=== PATIENT | female | born 1985 | race Caucasian/White ===

== ENCOUNTER → 2017-10-10 | Outpatient (CLI) | payer OTHER ==
--- NOTE | 2017-10-10 15:34 | US ---
EXAMINATION TYPE: US abdomen limited DATE OF EXAM: 10/10/2017 COMPARISON: NONE CLINICAL HISTORY: 32-year-old female R74.8 Elevated Liver Enzymes. Technique: Multiple sonographic images of the right upper quadrant are obtained. FINDINGS: Liver Length: 13.9 cm Gallbladder Wall: 0.2 cm CBD: 0.4 cm Right Kidney: 12.5 x 4.3 x 7.8 cm BUSINESS OFFICE REPRESENTATIVE NOTES: Exam somewhat limited by body habitus and bowel gas. Pancreas: Suboptimal visualization of the pancreatic tail secondary to shadowing from bowel gas. Liver: Echogenic in appearance. No focal lesion seen. Gallbladder: No abnormal gallbladder distention, wall thickening, pericholecystic fluid, or shadowin g calculi. Evidence for sonographic Weir's sign: No CBD: wnl Right Kidney: No hydronephrosis. IMPRESSION: 1. Some technical limitations due to bowel gas and large body habitus. 2. Findings suggest fatty infiltration of the liver. Correlate with LFTs, lipid profile, and patient risk factors.
== END | disposition home or self-care (01) ==
LOC: RADUSWWP 12:25
PROVIDERS: ATTEND Internal Medicine
DX: R74.8 Abnormal levels of other serum enzymes (principal)
CPT/HCPCS: 76705

== ENCOUNTER → 2019-08-09 | Outpatient (CLI) | payer OTHER ==
[2019-08-09 14:54] LABS: Basophils % (A) 1 %; Eosinophils # (A) 0.1 k/uL (0-0.7); Eosinophils % (A) 2 %; HCT 46.8 % (34.0-46.0); HGB 15.4 gm/dL (11.4-16.0); Lymphocytes % (A) 25 %; MCH 29.2 pg (25.0-35.0); MCV 88.6 fL (80.0-100.0); Monocytes # (A) 0.5 k/uL (0-1.0); Monocytes % (A) 6 %; Neutrophils # (A) 5.3 k/uL (1.3-7.7); Neutrophils % (A) 65 %; Platelet Count 275 k/uL (150-450); RBC 5.28 m/uL (3.80-5.40); RDW 12.8 % (11.5-15.5); WBC 8.1 k/uL (3.8-10.6)
== END | disposition home or self-care (01) ==
LOC: LABPAT 14:24
PROVIDERS: ATTEND Obstetrics & Gynecology
DX: Z01.812 Encounter for preprocedural laboratory examination (principal)
CPT/HCPCS: 36415; 85025

== ENCOUNTER 2019-08-12 08:24 | Day surgery (SDC) | payer OTHER ==
[2019-08-09 14:27] VITALS: BMI 43.9
[~2019-08-12 08:24] MED LIST: DEXAMETHASONE SOD PHOSPHATE 10 MG/ML 1 ML VIAL IV ONE; HYDROmorphone 0.5 MG/0.5 ML SYRINGE IVP PRN; LACTATED RINGERS 1,000 ML IV SCH; LIDOCAINE 1% 20 ML VIAL (10MG/ML) FOR IV START INTRADERMA PRN; MIDAZOLAM 2 MG/2 ML VIAL IV PRN; ONDANSETRON 4 MG/2 ML VIAL IVP ONE; Pre Op ABX Message 1 EACH MISC MISCELLANE ONE; SCOPOLAMINE 1.5MG/72HR PATCH TRANSDERM ONE
[2019-08-12 09:13] LABS: Glucose,Whole Blood 274 mg/dL (75-99)
--- NOTE | 2019-08-12 09:13 | P.HPOB ---
History of Present Illness H&P Date: 08/12/19 Chief Complaint: skin tag 34 year old G0 presents for skin tag removal on vulva. Review of Systems All systems: negative Constitutional: Denies chills, Denies fever Eyes: denies blurred vision, denies pain Ears, nose, mouth and throat: Denies headache, Denies sore throat Cardiovascular: Denies chest pain, Denies shortness of breath Respiratory: Denies cough Gastrointestinal: Denies abdominal pain, Denies diarrhea, Denies nausea, Denies vomiting Genitourinary: Denies dysuria, Denies hematuria Musculoskeletal: Denies myalgias Integumentary: Denies pruritus, Denies rash Neurological: Denies numbness, Denies weakness Psychiatric: Denies anxiety, Denies depression Endocrine: Denies fatigue, Denies weight change Past Medical History Past Medical History: Diabetes Mellitus, GERD/Reflux, Hypertension, Thyroid Disorder History of Any Multi-Drug Resistant Organisms: None Reported Additional Past Surgical History / Comment(s): wisdom teeth Past Anesthesia/Blood Transfusion Reactions: No Reported Reaction Smoking Status: Never smoker Medications and Allergies Home Medications Medication Instructions Recorded Confirmed Type Cider Vinegar [Apple Cider Vinegar] 300 mg PO 08/09/19 History Dapagliflozin Propanediol [Farxiga] 10 mg PO DAILY 08/09/19 08/09/19 History Glimepiride [Amaryl] 4 mg PO AC-BRKFST 08/09/19 08/09/19 History Levothyroxine Sodium [Synthroid] 150 mcg PO DAILY 08/09/19 08/09/19 History Lisinopril [Zestril] 10 mg PO DAILY 08/09/19 08/09/19 History Omeprazole 20 mg PO DAILY 08/09/19 08/09/19 History metFORMIN HCL 1,000 mg PO BID 08/09/19 08/09/19 History Allergies Allergy/AdvReac Type Severity Reaction Status Date / Time Penicillins Allergy Unknown Verified 08/09/19 14:19 Childhood Exam Osteopathic Statement: *. No significant issues noted on an osteopathic structural exam other than those noted in the History and Physical/Consult. Vital Signs Temp Pulse Resp BP Pulse Ox 08/12/19 08:47 98.2 F 97 16 148/87 97 Intake and Output 08/11/19 08/12/19 08/12/19 22:59 06:59 14:59 Other: Weight 142.88 kg Heart: Regular rate and rhythm Lungs: Clear to auscultation bilaterally Abdomen: Soft, nontender Extremities: Negative Homans sign Assessment and Plan (1) Skin tag of vulva Current Visit: Yes Status: Acute Code(s): N90.89 - OTH NONINFLAMMATORY DISORDERS OF VULVA AND PERINEUM SNOMED Code(s): 226067346 Plan: 1. Exam under anesthesia with removal of skin tags
[2019-08-12] MEDS ORDERED: INSULIN ASPART (NovoLOG) 100 UNIT/ML VIAL SQ ONE (09:18)
[2019-08-12] MEDS ORDERED: PROPOFOL 10 MG/ML 20 ML VIAL IV ONE (09:35)
[2019-08-12] MEDS ORDERED: diphenhydrAMINE 50 MG/ML 1 ML VIAL ONE (09:35)
[2019-08-12] MEDS ORDERED: KETAMINE 10 MG/ML 20 ML VIAL ONE (09:35)
[2019-08-12] MEDS ORDERED: fentaNYL (PF) 50 MCG/ML 2 ML AMP ONE (09:35)
[2019-08-12] MEDS ORDERED: MIDAZOLAM 2 MG/2 ML VIAL ONE (09:35)
[2019-08-12] MEDS ORDERED: LIDOCAINE 1%-EPI 1:100,000 20 ML VIAL SQ ONE ×2 (09:54)
[2019-08-12 10:16] LABS: Glucose,Whole Blood 265 mg/dL (75-99)
--- NOTE | 2019-08-12 10:18 | P.OP ---
Date of Procedure: 08/12/19 Preoperative Diagnosis: 1. Vulvar skin tags Postoperative Diagnosis: 1. Vulvar skin tags Procedure(s) Performed: exam under anesthesia with removal of vulvar skin tags Anesthesia: MAC Surgeon: Darby Gunter Estimated Blood Loss (ml): 1 IV fluids (ml): 100 Urine output (ml): 100 Pathology: other (skin tags) Condition: stable Disposition: PACU Operative Findings: 2 areas that appeared to be either skin tags or condyloma. Description of Procedure: patient taken the operating room where IV sedation was obtained without difficulty. She is prepped and draped in normal sterile fashion dorsal lithoto my position, legs placed in the Alvaro stirrups. The bladder was drained of all urine. 1% lidocaine with epinephrine was injected just beneath the areas of the skin tags. A 15 blade was used to excise these lesions. The Bovie was used for hemostasis. A 3-0 Vicryl is used in a subcuticular fashion to close these incisions. Patient to our procedure well, sponge management counts correct 2. She is taken to recovery in stable condition.
[2019-08-12 10:20] VITALS: TEMP 97.6
[2019-08-12 10:25] VITALS: RESP 16
[2019-08-12 10:55] VITALS: BP 123/58; PULSE 89
--- NOTE | 2019-08-19 02:43 | CDI ---
Outpatient Documentation Clarification Form Date: 19/08/2019 CDS/Development Executive Name: Manny Schmidt Phone: If any questions, call Yanet Hay Developmental Writing Instructor at [phone] Patient Name: Elham Diaz Admit Date: 08/12/2019 Discharge Date: 08/12/2019 ATTENTION: The [facility] Coding Staff appreciate your assistance in clarifying documentation. Please respond to the clarification below the line at the bottom and electronically sign. The [facility] Coding staff will review the response and follow-up if needed. Please note: Queries are made part of the Legal Health Record. If you have any questions, please contact the Developmental Writing Instructor. Dear Jani Alvarez Kathleen As per your Operative note documentation Removal of vulvar skin tags was performed. It was proved to be condyloma in path report. Please clarify the size of 2 condyloma removed. 1. First condyloma 1.5cm 2. Second condyloma____2.5cm Thank you for your kind consideration. MABLE
== END 2019-08-12 11:17 | disposition home or self-care (01) ==
LOC: OR 08:24
PROVIDERS: ATTEND Obstetrics & Gynecology
DX: A63.0 Anogenital (venereal) warts (principal); I10 Essential (primary) hypertension; E11.9 Type 2 diabetes mellitus without complications; K21.9 Gastro-esophageal reflux disease without esophagitis; Z79.84 Long term (current) use of oral hypoglycemic drugs; Z88.0 Allergy status to penicillin
CPT/HCPCS: 81025; 88305; 11422; 11423; J2250; J1200; J1100; J2405; J3010; J2704; 88304

== ENCOUNTER → 2020-04-17 | Outpatient (CLI) | payer BC ==
--- NOTE | 2020-04-17 08:54 | MM ---
Reason for exam: clinical finding. Baseline mammogram. History: Patient is nulliparous. Physical Findings: Nurse Summary: 0.5cm nodule in the left breast at 10 o'clock (nurse mac). [facility] Diagnostic Mammo w CAD TRISTAN Bilateral CC and MLO view(s) were taken. The breast tissue is almost entirely fat. There is no discrete abnormality. Medial palpable marker on the left. These results were verbally communicated with the patient and result sheet given to the patient on 04/17/20. ASSESSMENT: Incomplete: need additional imaging evaluation, BI-RAD 0 RECOMMENDATION: Ultrasound of the left breast. (targeted to palpable)
--- NOTE | 2020-04-17 08:56 | USB ---
Reason for exam: additional evaluation requested from abnormal screening. History: Patient is nulliparous. US Breast Workup Limited LT Technologist: Sybil Turner Left limited breast ultrasound including focal area of concern, retroareolar and axilla demonstrates no cystic or solid lesion seen. Scanned 9-12 o'clock, particular attention 10 o'clock palpable felt by patient and nurse. These results were verbally communicated with the patient and result sheet given to the patient on 04/17/20. ASSESSMENT: Negative, BI-RAD 1 RECOMMENDATION: Routine screening mammogram of both breasts at age 39. (unless clinical indication to start sooner) Manage on a clinical basis with regard to any suspicious palpable abnormality.
== END | disposition home or self-care (01) ==
LOC: RADMAMWWP 07:23
PROVIDERS: ATTEND Obstetrics & Gynecology
DX: N63.20 Unspecified lump in the left breast, unspecified quadrant (principal); R92.8 Other abnormal and inconclusive findings on diagnostic imaging of breast
CPT/HCPCS: 77066

== ENCOUNTER → 2021-07-25 | Outpatient (CLI) | payer BC ==
[2021-07-25 19:03] LABS: HCT 38.2 % (37.2-46.3); HGB 12.4 g/dL (12.0-15.0); MCH 29.7 pg (27.0-32.0); MCHC 32.5 g/dL (32.0-37.0); MCV 91.6 fL (80.0-97.0); Platelet Count 201 X 10*3/uL (140-440); RBC 4.17 X 10*6/uL (4.10-5.20); RDW 13.2 % (11.5-14.5); WBC 6.88 X 10*3/uL (4.50-10.00)
[2021-07-25 19:05] LABS: Hepatitis B Surface Antigen Nonreactive (Nonreactive)
[2021-07-25 19:54] LABS: T4, Free (Free Thyroxine) 0.9 ng/dL (0.800-1.800)
[2021-07-26 12:50] LABS: HIV 2 AB Non-Reactive (Non-Reactive); HIV AB P24 Non-Reactive (Non-Reactive); HIV P24 AG Non-Reactive (Non-Reactive)
== END | disposition home or self-care (01) ==
LOC: LABWHC1 12:14
PROVIDERS: ATTEND Obstetrics & Gynecology
DX: Z34.03 Encounter for supervision of normal first pregnancy, third trimester (principal); Z3A.00 Weeks of gestation of pregnancy not specified
CPT/HCPCS: 36415; 83036; 84439; 84443; 85027; 86762; 86780; 86850; 86900; 86901; 87340; 87390

== ENCOUNTER 2021-08-13 09:57 | Outpatient (CLI) | payer BC ==
[2021-08-13 11:02] VITALS: BP 143/87; PULSE 86; RESP 14; TEMP 97.8
== END 2021-08-13 11:02 | disposition home or self-care (01) ==
LOC: FBPOP 09:57
PROVIDERS: ATTEND Obstetrics & Gynecology
DX: O14.93 Unspecified pre-eclampsia, third trimester (principal); O36.8131 Decreased fetal movements, third trimester, fetus 1; O24.419 Gestational diabetes mellitus in pregnancy, unspecified control; Z3A.32 32 weeks gestation of pregnancy; Z88.0 Allergy status to penicillin
CPT/HCPCS: 59025; 99213

== ENCOUNTER → 2024-10-21 | Outpatient (CLI) | payer OTHER ==
--- NOTE | 2024-10-21 13:44 | MM ---
Reason for Exam: Screening (asymptomatic). Last mammogram was performed 4 year(s) and 6 month(s) ago. Patient History: Menarche at age 12. Patient has no children. Risk Values: Mayte 5 year model risk: 0.6%. NCI Lifetime model risk: 11.1%. Prior Study Comparison: 04/17/2020 Bilateral Diagnostic Mammogram, [facility]. Tissue Density: There are scattered areas of fibroglandular density. Findings: Analyzed By CAD. Right breast: There is no suspicious group of microcalcifications or new suspicious mass. Left breast: There is no suspicious group of microcalcifications or new suspicious mass. Overall Assessment: Negative, BI-RAD 1 Management: Screening Mammogram of both breasts in [address] [facility] will attempt to contact patient to return for supplemental views and ultrasound if indicated. Patient should continue monthly self-breast exams. A clinical breast exam by your physician is recommended on an annual basis. This exam should not preclude additional follow-up of suspicious palpable abnormalities. Note on Mayte scores and lifetime risk: 1. A Mayte score greater than 3% is considered moderate risk. If this is the case, consider specialist referral to assess eligibility for a risk reducing agent. 2. If overall lifetime risk for the development of breast cancer is 20% or higher, the patient may qualify for future screening with alternating mammogram and breast MRI. [facility], , 10/21/2024 1:41 PM. Electronically signed and approved by: Ganga Helm DO
== END | disposition home or self-care (01) ==
LOC: RADMAMWWP 13:11
PROVIDERS: ATTEND Family Medicine
DX: Z12.31 Encounter for screening mammogram for malignant neoplasm of breast (principal); R92.323 Mammographic fibroglandular density, bilateral breasts
CPT/HCPCS: 77063; 77067